=== PATIENT | female | born 1980 | race Caucasian/White ===

== ENCOUNTER 2017-06-08 23:05 | Inpatient (IN) | payer SELFPAY ==
[2017-06-08 23:59] LABS: Basophils % (Auto) 0.3 % (0.0-1.8); Eosinophils # (Auto) 0.1 K/mm3 (0.0-0.4); Eosinophils % (Auto) 0.7 % (0.0-4.3); Hematocrit 34.4 % (30.3-42.9); Hemoglobin 10.7 gm/dl (10.1-14.3); Lymphocytes # (Auto) 1.6 K/mm3 (1.2-5.4); Lymphocytes % (Auto) 11.1 % (13.4-35.0); Mean Corpuscular HGB Conc 31 % (30-34); Mean Corpuscular Volume 80 fl (79-97); Monocytes # (Auto) 0.9 K/mm3 (0.0-0.8); Monocytes % (Auto) 6.4 % (0.0-7.3); Platelet Count 279 K/mm3 (140-440); Red Cell Distribution Width 16.1 % (13.2-15.2)
[2017-06-09 00:34] LABS: Bilirubin,Urine NEG (Negative); Blood,Urine LG (Negative); Color,Urine Yellow (Yellow); Mucus,Urine FEW /HPF; Urobilinogen,Urine < 2.0 mg/dL (<2.0)
[2017-06-09 00:46] LABS: Mean Corpuscular Hemoglobin 25 pg (28-32)
[2017-06-09 01:18] LABS: Alanine Aminotransferase 14 units/L (7-56); Albumin 3.8 g/dL (3.9-5); BUN/Creatinine Ratio 14; Blood Urea Nitrogen 13 mg/dL (7-17); Calcium 8.5 mg/dL (8.4-10.2); Hemolysis Index 0
[2017-06-09] MEDS ORDERED: ZOFRAN ODT PO ONE (02:33)
[2017-06-09] MEDS ORDERED: PERCOCET 5/325 PO ONE (02:33)
[2017-06-09] MEDS ORDERED: TORADOL IM ONE (02:34)
--- NOTE | 2017-06-09 02:35 | Emergency Department Report ---
ED Abdominal Pain HPI - General Chief Complaint: Abdominal Pain Stated Complaint: FLANK PAIN Time Seen by Provider: 06/09/17 02:25 Source: patient, family Mode of arrival: Ambulatory Limitations: No Limitations - History of Present Illness MD Complaint: abdominal pain -: Gradual, days(s) (1) Location: LLQ Radiation: none Migration to: no migration Severity: severe Severity scale (0 -10): 10 Quality: sharp Consistency: constant Improves With: nothing Worsens With: nothing Context: recent antibiotic use (for UTI) - Related Data Allergies Allergy/AdvReac Type Severity Reaction Status Date / Time No Known Allergies Allergy Unverified 06/08/17 23:22 ED Review of Systems ROS: Stated complaint: FLANK PAIN Other details as noted in HPI Comment: All other systems reviewed and negative Constitutional: denies: chills, fever Respiratory: denies: cough Genitourinary: denies: urgency, dysuria, discharge, abnormal menses ED Past Medical Hx - Past Medical History Previous Medical History?: No - Surgical History Past Surgical History?: Yes Additional Surgical History: partial hysterectomy - Social History Smoking Status: Never Smoker Substance Use Type: None ED Physical Exam - General Limitations: No Limitations General appearance: alert, in no apparent distress - Head Head exam: Present: atraumatic, normocephalic - Eye Eye exam: Present: normal appearance - ENT ENT exam: Present: mucous membranes moist - Neck Neck exam: Present: normal inspection - Respiratory Respiratory exam: Present: normal lung sounds bilaterally. Absent: respiratory distress, wheezes, rales, rhonchi - Cardiovascular Cardiovascular Exam: Present: regular rate, normal rhythm, normal heart sounds. Absent: systolic murmur, diastolic murmur, rubs, gallop - GI/Abdominal GI/Abdominal exam: Present: soft, tenderness, guarding, normal bowel sounds. Absent: distended, rebound - Bi-manual exam: Present: adnexal tenderness, other (mild vaginal bleeding, no noticeable vaginal discharge otherwise). Absent: cervical motion tendernes, uterine enlargement, uterine tenderness - Extremities Exam Extremities exam: Present: normal inspection - Back Exam Back exam: Present: normal inspection - Neurological Exam Neurological exam: Present: alert, oriented X3 - Psychiatric Psychiatric exam: Present: normal affect, normal mood - Skin Skin exam: Present: warm, dry, intact, normal color. Absent: rash ED Course Vital Signs 06/08/17 06/09/17 06/09/17 23:22 00:42 02:28 Temperature 98.4 F 97.2 F L Pulse Rate 90 Respiratory 18 Rate Blood Pressure 118/66 Blood Pressure 122/78 [Left] O2 Sat by Pulse 98 Oximetry ED Medical Decision Making - Lab Data Result diagrams: 06/08/17 23:40 06/08/17 23:40 - Medical Decision Making Ms. Crawford presents with LLQ pain with inflammatory changes seen near the enlarged adnexa structure. DDZ: ovarian cyst vs TOA ?ovarian torsion Patient has significant pain. No indication of PID on pelvic exam. 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 My colleague Dr. Simpson will assume care of patient. Critical care attestation.: If time is entered above; I have spent that time in minutes in the direct care of this critically ill patient, excluding procedure time. ED Disposition Condition: Stable Instructions: Abdominal Pain (ED) Referrals: ANITA TORRES MD [Primary Care Provider] - 3-5 Days
--- NOTE | 2017-06-09 03:38 | Cat Scan Report ---
FINAL REPORT EXAM: CT ABDOMEN PELVIS WO CON HISTORY: LLQ pain, fever TECHNIQUE: Routine axial imaging was obtained of the abdomen and pelvis without oral or IV contrast. Sagittal and coronal reconstructions were reviewed. FINDINGS: The lung bases are clear. Pleural fluid is not seen. The liver, gallbladder, pancreas, spleen, and adrenal glands appear normal. The kidneys show no evidence of stones or hydronephrosis. There is a 13 mm cyst ventrally in the left kidney centrally. The bowel loops are normal in caliber and course. There is no evidence of adenopathy. In the left adnexal area there is 3.9 cm x 3 9 cm x 6 cm cystic structure. There is adjacent inflammatory changes of the mesentery. A tubo-ovarian abscess cannot entirely be excluded. There is also a right septated cystic structure measuring 4.6 cm x 3.9 cm x 5.8 cm. With this represents an additional tubo-ovarian abscess or ovarian cyst is uncertain. Free fluid is not seen. The uterus and bladder appear normal. The skeletal structures otherwise well maintained IMPRESSION: Bilateral adnexal cystic lesions with measurements as described. Mild inflammatory changes of the adjacent mesentery on left side. A tubo-ovarian abscess cannot entirely be excluded. Small cortical cyst in left kidney. No acute process in the upper abdomen otherwise.
[2017-06-09] MEDS ORDERED: DOXYCYCLINE HYCLATE 100 MG in NACL 0.9% 250ML 250 ML IV ONE (06:17)
--- NOTE | 2017-06-09 06:19 | Ultrasound Report ---
FINAL REPORT EXAM: US TRANSVAGINAL HISTORY: possible TOA on CT TECHNIQUE: Transvaginal imaging was obtained of the pelvis along with Doppler interrogation of the adnexa. Correlation with the CT scan of the abdomen pelvis of 06/09/2017 was obtained. FINDINGS: The uterus is anteverted measuring 9.5 cm x 5.8 cm x 5.4 cm. The myometrium is homogeneous. The endometrial thickness is 18.8 mm. The left ovary measures 2.9 cm x 2.5 cm x 3 cm. There is a left adnexal complex mass extending from the uterus measuring 5.8 cm x 4.5 cm x 4.9 cm with cystic changes measure up to 3.6 cm in diameter. Given the history fever, a tubo-ovarian abscess cannot be excluded. The right ovary measures 5 cm x 2 cm x 2.5 cm. Within the right ovary is a functional cyst measuring 4.1 cm in diameter. There is an additional right adnexal complex mass extending from the uterus measures 6.3 cm x 3 cm x 4 cm. There is OC to cystic changes within this measuring up to 4.9 cm in diameter. Once again a tubo-ovarian abscess cannot be excluded. IMPRESSION: Complex bilateral adnexal cystic masses with measurements as described. Given the history of fever and pelvic pain tubo-ovarian abscesses cannot be excluded.
[2017-06-09] MEDS ORDERED: MAXIPIME/NS 1 GM/100 ML 1 GM/100 ML BAG IV ONE (06:20)
--- NOTE | 2017-06-09 06:21 | Ultrasound Report ---
FINAL REPORT EXAM: US PELVIC COMPLETE HISTORY: possible toa on CT, LLQ pain TECHNIQUE: Transabdominal imaging was obtained of the pelvis. Doppler interrogation of the adnexa was performed. FINDINGS: The uterus is anteverted measuring 9.5 cm x 5.8 cm x 5.4 cm. The myometrium is homogeneous. There is thickening of the endometrium measuring 18.8 mm in thickness. The right ovary measures 5 cm x 2 cm x 2.5 cm. There is a cyst in the right ovary measuring 4.1 cm in diameter. There is a right adnexal complex mass extending from the uterus measuring 6.3 cm x 3 cm x 4.1 cm with cystic changes. Given the history fever this may represent a tubo-ovarian abscess. The left ovary measures 2.9 cm x 2.5 cm x 3 cm. There is a complex left adnexal mass extending from the uterus measuring 5.8 cm x 4.5 cm x 4.9 cm with additional cystic changes measuring 3.6 cm in diameter. This may represent an additional tubal ovarian abscess given the history of fever. IMPRESSION: Bilateral complex adnexal cystic lesions as described with measurements. Given the history of fever, these may represent tubo-ovarian abscesses.
[2017-06-09] MEDS ORDERED: MAXIPIME 1 GM in NACL 0.9% 20 ML IV ONE (06:30)
--- NOTE | 2017-06-09 13:02 | History and Physical Report ---
History of Present Illness Date of examination: 06/09/17 Date of admission: 06/09/17 07:52 Chief complaint: abdominal pain History of present illness: 36y/o G0 presents with LLQ pain and fever at home. The patient denies any vaginal discharge but reports having vaginal bleeding consistent with her menses. She states her pain began 3 days ago and has worsened. Pelvic ultrasound demonstrates bilateral cystic masses. Tubo-ovarian abscess could not be ruled out. HCG is negative. Past History Past Medical History: no pertinent history Past Surgical History: other (exploratory laparotomy/cystectomy) Social history: - Obstetrical History : 0 Para: 0 Medications and Allergies Allergies Allergy/AdvReac Type Severity Reaction Status Date / Time No Known Allergies Allergy Verified 06/09/17 06:19 Active Meds: Active Medications Acetaminophen/Hydrocodone Bitart ([place] 5/325) 2 each PO Q4H PRN PRN Reason: Pain, Moderate (4-6) Doxycycline Hyclate 200 mg/ (Sodium Chloride) 250 mls @ 250 mls/hr IV Q12HR [facility] ; Protocol Metronidazole (Flagyl 500 Mg/100 Ml) 500 mg in 100 mls @ 100 mls/hr IV Q8HR [facility] Cefepime HCl 2 gm/ Sodium (Chloride) 20 mls @ 20 mls/10 min IV Q8HR [facility]; Protocol Review of Systems All systems: negative Genitourinary: vaginal bleeding, pelvic pain - Vital Signs Vital signs: Vital Signs Temp Pulse Resp BP Pulse Ox 98.4 F 90 18 118/66 98 06/08/17 23:22 06/08/17 23:22 06/08/17 23:22 06/08/17 23:22 06/08/17 23:22 Temp Pulse Resp BP Pulse Ox 97.8 F 88 18 127/74 98 06/09/17 09:18 06/09/17 09:18 06/09/17 09:18 06/09/17 09:18 06/09/17 09:18 - Physical Exam Breasts: Positive: deferred Cardiovascular: Regular rate Lungs: Positive: Clear to auscultation Abdomen: Positive: soft, tenderness Results Result Diagrams: 06/08/17 23:40 06/08/17 23:40 Abnormal lab results 06/08/17 06/08/17 Range/Units 23:40 23:40 WBC 14.0 H (4.5-11.0) K/mm3 MCH 25 L (28-32) pg RDW 16.1 H (13.2-15.2) % Lymph % (Auto) 11.1 L (13.4-35.0) % [place] # 0.9 H (0.0-0.8) K/mm3 Seg Neutrophils % 81.5 H (40.0-70.0) % Seg Neutrophils # 11.4 H (1.8-7.7) K/mm3 Potassium 3.5 L (3.6-5.0) mmol/L Chloride 97.1 L (98-107) mmol/L Carbon Dioxide 21 L (22-30) mmol/L Glucose 114 H (65-100) mg/dL Albumin 3.8 L (3.9-5) g/dL All other labs normal. Assessment and Plan - Patient Problems (1) Pelvic pain Current Visit: Yes Status: Acute (2) Adnexal mass Current Visit: Yes Status: Acute (3) Pelvic inflammatory disease Current Visit: Yes Status: Acute Plan to address problem: will initiate antibiotic therapy supportive measures for pain
[2017-06-09] MEDS: NORCO 5/325 PO PRN ×2 (13:50→23:26)
[2017-06-09] MEDS: MAXIPIME 2 GM in NACL 0.9% 20 ML IV SCH ×2 (13:51→22:30)
[2017-06-09] MEDS: FLAGYL 500 MG/100 ML 500 MG/100 ML BAG IV SCH ×2 (14:02→17:52)
[2017-06-09] MEDS: D5LR 1,000 ML IV SCH ×2 (14:45→17:53)
[2017-06-09] MEDS: DOXYCYCLINE HYCLATE 200 MG in NACL 0.9% 250ML 250 ML IV SCH (22:45)
[2017-06-10] MEDS: FLAGYL 500 MG/100 ML 500 MG/100 ML BAG IV SCH ×3 (02:30→18:10)
[2017-06-10 06:02] LABS: Hematocrit 28.3 % (30.3-42.9); Hemoglobin 8.9 gm/dl (10.1-14.3)
[2017-06-10] MEDS: MAXIPIME 2 GM in NACL 0.9% 20 ML IV SCH ×3 (06:49→23:27)
[2017-06-10] MEDS: D5LR 1,000 ML IV SCH ×2 (07:28→18:10)
[2017-06-10] MEDS: DOXYCYCLINE HYCLATE 200 MG in NACL 0.9% 250ML 250 ML IV SCH (11:43)
[2017-06-10] MEDS: NORCO 5/325 PO PRN (12:00)
--- NOTE | 2017-06-10 18:42 | Progress Note ---
Assessment and Plan - Patient Problems (1) Pelvic pain Current Visit: Yes Status: Acute Plan to address problem: patient with clinical improvement patient states having a history of menorrhagia consider discharge home tomorrow remains afebrile (2) Adnexal mass Current Visit: Yes Status: Acute (3) Pelvic inflammatory disease Current Visit: Yes Status: Acute Subjective - Subjective Date of service: 06/10/17 Interval history: 36y/o G0 presents with LLQ pain and fever at home. The patient has been receiving IV antibiotics and has had improvement in her pain. Yesterday she had episodes of occasional lightheadedness. Her hematology suggest findings of anemia. Patient reports: appetite normal, voiding normally, pain well controlled Objective - Vital Signs Latest vital signs: Vital Signs Temp Pulse Resp BP BP Pulse Ox 06/10/17 15:51 98.1 F 70 18 105/59 96 06/10/17 12:00 18 06/10/17 08:11 97.9 F 71 18 111/71 99 06/10/17 04:30 98.9 F 73 18 101/63 06/10/17 00:00 99.2 F 77 20 104/53 06/09/17 20:10 99.4 F 70 20 108/61 Intake and Output 06/10/17 06/10/17 06/10/17 06:59 14:59 22:59 Intake Total 3745 866 6948 Output Total 1000 600 Balance 590 -500 1000 Intake: IV 0123 246 4413 D5lr 1,000 ml @ 125 mls/ 1000 1000 hr IV DIRECT [facility] Rx#: [id number] Doxycycline Hyclate 200 250 mg In NaCl 0.9% 250Ml 250 ml @ 250 mls/hr IV Q12HR [facility] Rx#:[id number] FLAGYL 500 MG/100 ML 500 100 100 mg In 100 ml @ 100 mls/hr IV Q8HR [facility] Rx#: [id number] Oral 240 Output: Urine 1000 600 Void 1000 600 Other: Total, Intake Amount 120 Total, Output Amount 400 600 - Exam Abdomen: Present: soft - Labs Labs: Abnormal lab results 06/10/17 Range/Units 05:42 Hgb 8.9 L (10.1-14.3) gm/dl Hct 28.3 L D (30.3-42.9) %
[2017-06-11] MEDS: DOXYCYCLINE HYCLATE 200 MG in NACL 0.9% 250ML 250 ML IV SCH
[2017-06-11] MEDS: NORCO 5/325 PO PRN (00:09)
[2017-06-11] MEDS: FLAGYL 500 MG/100 ML 500 MG/100 ML BAG IV SCH (02:00)
[2017-06-11] MEDS: D5LR 1,000 ML IV SCH (03:16)
[2017-06-11 05:43] LABS: Hematocrit 28.5 % (30.3-42.9); Hemoglobin 8.9 gm/dl (10.1-14.3); Mean Corpuscular HGB Conc 31 % (30-34); Mean Corpuscular Volume 80 fl (79-97); Platelet Count 274 K/mm3 (140-440); Red Blood Count 3.57 M/mm3 (3.65-5.03); Red Cell Distribution Width 16.3 % (13.2-15.2)
[2017-06-11 05:47] LABS: Mean Corpuscular Hemoglobin 25 pg (28-32)
--- NOTE | 2017-06-11 10:32 | Progress Note ---
Assessment and Plan - Patient Problems (1) Pelvic pain Current Visit: Yes Status: Acute Plan to address problem: Patient demonstrating significant clinical improvement Discharge home (2) Adnexal mass Current Visit: Yes Status: Acute (3) Pelvic inflammatory disease Current Visit: Yes Status: Acute Subjective - Subjective Date of service: 06/11/17 Interval history: The patient reports feeling better today. She states that her pain is well controlled. Follow-up was discussed with the patient and to monitor the ovarian cysts. Patient reports: appetite normal, voiding normally, pain well controlled Objective - Vital Signs Latest vital signs: Vital Signs Temp Pulse Resp Resp BP Pulse Ox 06/11/17 01:09 18 06/11/17 00:09 18 06/11/17 00:00 98.9 F 75 18 110/67 06/10/17 20:10 98.7 F 72 18 106/63 06/10/17 19:30 18 18 06/10/17 15:51 98.1 F 70 18 105/59 96 06/10/17 12:00 18 Intake and Output 06/10/17 06/11/17 06/11/17 22:59 06:59 14:59 Intake Total 1220 1240 360 Balance 1220 1240 360 Intake: IV 1100 1000 D5lr 1,000 ml @ 125 mls/ 1000 1000 hr IV DIRECT [facility] Rx#: [id number] FLAGYL 500 MG/100 ML 500 100 mg In 100 ml @ 100 mls/hr IV Q8HR [facility] Rx#: [id number] Oral 120 240 360 Other: Total, Intake Amount 120 240 360 Voiding Method Toilet # Voids Void 1 1 1 - Exam Abdomen: Present: normal appearance, soft - Labs Labs: Abnormal lab results 06/11/17 Range/Units 05:24 WBC 11.9 H (4.5-11.0) K/mm3 RBC 3.57 L (3.65-5.03) M/mm3 Hgb 8.9 L (10.1-14.3) gm/dl Hct 28.5 L (30.3-42.9) % MCH 25 L (28-32) pg RDW 16.3 H (13.2-15.2) %
--- NOTE | 2017-06-11 10:35 | Discharge Summary ---
Providers - Providers Date of Admission: 06/09/17 07:52 Date of discharge: 06/11/17 Attending physician: EMILE HAHN Primary care physician: ANITA TORRES Hospitalization Reason for admission: other (abdominal pain) Discharge diagnosis: other (bilateral adnexal cysts; possible PID) Hospital course: The patient was admitted through the emergency room with a complaint of worsening left lower quadrant pain and fevers at home. A pelvic ultrasound was performed that demonstrated evidence of bilateral ovarian cysts could not rule out tubo-ovarian abscess. The patient was initiated on IV antibiotics and had significant improvement in her symptoms. She was discharged home meeting all discharge criteria. Condition at discharge: Good Disposition: DC-01 TO HOME OR SELFCARE - Discharge Diagnoses (1) Pelvic pain Status: Acute (2) Adnexal mass Status: Acute (3) Pelvic inflammatory disease Status: Acute Plan - Discharge Medications Prescriptions: Doxycycline [Vibramycin CAP] 100 mg PO Q12HR #14 capsule Ferrous Sulfate [Feosol 325 MG tab] 325 mg PO BID #60 tablet HYDROcodone/APAP 5-325 [[place] 5/325] 1 each PO Q6HR PRN #30 tablet PRN Reason: Pain Ibuprofen [Motrin] 800 mg PO Q8HR PRN #60 tablet PRN Reason: Pain Levonorgestrel-Ethin Estradiol [[place] 0.15 mg-0.03 mg Tablet] 1 each PO QDAY # 1 tbdspk.3mo - Provider Discharge Summary Activity: no heavy lifting 4 weeks, no strenuous exercise Diet: routine Instructions: routine Additional instructions: [] Smoking cessation referral if applicable(refer to patient education folder for contact #) [] Refer to [facility] Booklet Call your doctor immediately for: * Fever > 100.5 * Heavy vaginal bleeding ( >1 pad per hour) * Severe persistent headache * Shortness of breath * Reddened, hot, painful area to leg or breast * Follow-up with Dr. Frost in [address] [place] [id number] - Follow up plan
[2017-06-11 10:52] VITALS: BP 107/63
== END 2017-06-11 11:10 | disposition home or self-care (01) | DRG 761 ==
LOC: ED 23:05 → OB 06-09 07:52
PROVIDERS: ADMIT Obstetrics & Gynecology; ATTEND Obstetrics & Gynecology
DX: N85.8 Other specified noninflammatory disorders of uterus (principal); N83.202 Unspecified ovarian cyst, left side; N70.93 Salpingitis and oophoritis, unspecified; N83.201 Unspecified ovarian cyst, right side; Z90.711 Acquired absence of uterus with remaining cervical stump
CPT/HCPCS: 36415; 74176; 76830; 76856; 80053; 81001; 84703; 85014; 85018; 85025; 85027; 87591; J0692; J1885; J7050; J7121; Q0162